=== PATIENT | male | born 1950 | race Caucasian/White ===

== ENCOUNTER 2022-02-01 19:04 | Emergency (ER) | payer MEDICARE, OTHER ==
[2022-02-01] MEDS ORDERED: LIDOCAINE 1%-EPI 1:100000 20 ML MDV SUBQ STA (19:29)
[2022-02-01] MEDS ORDERED: BUPIVACAINE 0.5% PF 10 ML VIAL SUBQ STA (19:30)
--- NOTE | 2022-02-01 19:36 | ED Physician Documentation ---
PD HPI UPPER EXT INJURY - Stated complaint Stated Complaint: RIGHT WRIST PX - Chief complaint Chief Complaint: Ext Problem - History obtained from History obtained from: Patient - Additonal information Additional information: 71-year-old gentleman with history of prostate cancer and hypertension presents with right hand pain starting early this morning around 3 AM. The pain is severe and unrelenting. There is no associated injury. He denies fevers or chills. Never had anything like this before. Review of Systems Ten Systems: 10 systems reviewed and negative Constitutional: denies: Fever, Chills Eyes: denies: Loss of vision, Decreased vision Ears: denies: Loss of hearing, Ear pain Nose: denies: Rhinorrhea / runny nose, Congestion Throat: reports: Reviewed and negative Cardiac: reports: Reviewed and negative Respiratory: reports: Reviewed and negative PD PAST MEDICAL HISTORY - Past Medical History Past Medical History: Yes Cardiovascular: Hypertension : Benign prostate hypertrophy, Other Musculoskeletal: Other Other Past Medical History: prostate Catorn rotator cuff - Past Surgical History Past Surgical History: Yes Ortho: Rotator cuff repair - Present Medications Home Medications: Ambulatory Orders Medication Instructions Recorded Confirmed Finasteride [Propecia] 1 mg PO DAILY 02/01/22 02/01/22 Lisinopril [Zestril] 5 mg PO BID 02/01/22 02/01/22 Tamsulosin [Flomax] 0.4 mg PO DAILY 02/01/22 02/01/22 - Allergies Allergies/Adverse Reactions: Allergies Allergy/AdvReac Type Severity Reaction Status Date / Time No Known Drug Allergies Allergy Verified 02/01/22 19:20 - Social History Does the pt smoke?: No Smoking Status: Never smoker Does the pt drink ETOH?: Yes Does the pt have substance abuse?: No - Immunizations Immunizations are current?: Yes PD ED PE NORMAL - Vitals Vital signs reviewed: Yes - General General: Alert and oriented X 3, Other (Appears uncomfortable, pacing because of the pain.) - HEENT HEENT: PERRL, EOMI - Neck Neck: Supple, no meningeal sign, No bony TTP - Cardiac Cardiac: RRR, No murmur - Respiratory Respiratory: No respiratory distress, Clear bilaterally - Abdomen Abdomen: Normal bowel sounds, Soft, Non tender - Back Back: No CVA TTP, No spinal TTP - Derm Derm: Normal color, Warm and dry - Extremities Extremities: Other (He has an area of warmth and redness on the dorsum of the right hand, radial side proximally. It is quite tender. No fluctuance or palpable abscess.) - Neuro Neuro: Alert and oriented X 3, Normal speech - Psych Psych: Normal mood, Normal affect Results - Vitals Vitals: Vital Signs - 24 hr 02/01/22 02/01/22 02/01/22 19:15 21:00 21:01 Temperature 36.7 C Heart Rate 100 85 Respiratory 16 15 Rate Blood Pressure 157/95 H 121/70 O2 Saturation 96 87 L 98 02/01/22 02/01/22 21:27 23:09 Temperature 36.8 C Heart Rate 89 104 H Respiratory 16 16 Rate Blood Pressure 130/73 138/90 H O2 Saturation 99 98 Oxygen O2 Source Nasal cannula - Labs Labs: Microbiology 02/01/22 19:55 Wound Culture - Preliminary Wrist - Right Laboratory Tests 02/01/22 02/01/22 02/01/22 19:39 19:39 19:39 WBC 12.1 H RBC 4.63 L Hgb 14.6 Hct 43.0 MCV 92.9 MCH 31.5 H MCHC 34.0 RDW 13.9 Plt Count 290 MPV 9.5 Neut # (Auto) 9.1 H Lymph # (Auto) 1.6 [place] # (Auto) 1.0 Eos # (Auto) 0.2 Baso # (Auto) 0.0 Absolute Nucleated RBC 0.00 Nucleated RBC % 0.0 Sodium 135 Potassium 3.9 Chloride 98 L Carbon Dioxide 25 Anion Gap 12.0 BUN 22 H Creatinine 1.1 Estimated GFR (MDRD) 66 L Glucose 128 H Lactic Acid 1.6 Uric Acid 4.9 Calcium 9.3 C-Reactive Protein 1.4 H Fluid Source Fluid Color Fluid Clarity Fluid WBC Fluid RBC Fluid Neutrophils % Fluid Lymphocytes % Fluid Monocytes % Fld Mesothelial Cell % Fluid Crystals SARS-CoV-2 (PCR) 02/01/22 02/01/22 02/01/22 19:55 19:55 20:05 WBC RBC Hgb Hct MCV MCH MCHC RDW Plt Count MPV Neut # (Auto) Lymph # (Auto) [place] # (Auto) Eos # (Auto) Baso # (Auto) Absolute Nucleated RBC Nucleated RBC % Sodium Potassium Chloride Carbon Dioxide Anion Gap BUN Creatinine Estimated GFR (MDRD) Glucose Lactic Acid Uric Acid Calcium C-Reactive Protein Fluid Source JOINT Fluid Color STRAW Fluid Clarity CLOUDY Fluid WBC TNP Fluid RBC TNP Fluid Neutrophils % 85.0 Fluid Lymphocytes % 3.0 Fluid Monocytes % 12.0 Fld Mesothelial Cell % 0 Fluid Crystals NONE SEEN SARS-CoV-2 (PCR) NOT DETECTED Procedures - Regional nerve block Nerve block site: Radial Right / left: Right Nerve block anesthesia: Lidocaine 1%, Marcaine 0.5% Nerve block aftercare: Excellent anesthesia - Arthrocentesis Joint: Wrist Preparation: Consent obtained, Sterile prep and drape Anesthesia: Lidocaine 1% Fluid: Sent for cell count, Sent for crystals, Fluid obtained - cc (1.2ml), Sent for gram stain, Purulent Aftercare: Dressing applied, No complications PD MEDICAL DECISION MAKING - ED course ED course: 71-year-old gentleman presents with right wrist pain. No clear etiology and pain is clearly out of proportion to exam. He was attended to immediately and a radial nerve block was done with a one-to-one mixture of lidocaine with epinephrine and Marcaine with decent pain control but then he was feeling more pain over on the ulnar side of the wrist. An x-ray was done as on the differential was necrotizing soft tissue infection, this was negative except for CMC and carpal arthritis. Then an arthrocentesis was done of the right wrist which was clearly purulent. Only a little more than 1 cc was obtained and was sent for Gram stain, culture, and cell count. Crystal exam if quantity is sufficient. We do not have orthopedics fashion show director and we started the process of looking for a facility capable of taking him in transfer at about 8 PM. The volume of arthrocentesis was not sufficient for a cell count, crystals were negative and she is going to do a differential. When she looked at the Gram stain there were TNTC white cells. Gram stain positive for gram-positive bacilli, and although she was not able to do a formal cell count the differential was predominantly neutrophils. He was administered Unasyn and vancomycin. Unasyn because I was concerned that given the above Gram stain this could be Listeria and vancomycin for other common gram-positive etiologies. I did update the by phone, she is available at [phone]. No ortho fashion show director here and [employer] called many facilities to find transfer, but closest open bed at [facility]. Care to Dr Rae at shift change pending doc to doc. Departure - Departure Disposition: 02 Transfer Acute Care Hosp Clinical Impression: Septic arthritis of wrist, right Qualifiers: Septic arthritis organism: due to unspecified organism Qualified Code(s): M00.9 - Pyogenic arthritis, unspecified Condition: Serious Discharge Date/Time: 02/01/22 23:24
[2022-02-01 19:45] LABS: BASOPHILS % (AUTO) 0.3 %; EOSINOPHILS # (AUTO) 0.2 10^3/uL (0.0-0.7); EOSINOPHILS % (AUTO) 1.7 %; HGB - HEMOGLOBIN 14.6 g/dL (14.0-18.0); LYMPHOCYTES # (AUTO) 1.6 10^3/uL (1.5-3.5); LYMPHOCYTES % (AUTO) 13.5 %; MEAN CORPUSCULAR HEMOGLOBIN 31.5 pg (27.0-31.0); MEAN CORPUSCULAR VOLUME 92.9 fL (80.0-94.0); MEAN PLATELET VOLUME 9.5 fL (7.4-11.4); MONOCYTES % (AUTO) 8.5 %; NEUTROPHILS # (AUTO) 9.1 10^3/uL (1.5-6.6); NEUTROPHILS % (AUTO) 75.5 %; PLT - PLATELET COUNT 290 10^3/uL (130-450); RED BLOOD COUNT 4.63 10^6/uL (4.70-6.10); RED CELL DISTRIBUTION WIDTH 13.9 % (12.0-15.0); WHITE BLOOD COUNT 12.1 x10^3/uL (4.8-10.8)
--- NOTE | 2022-02-01 19:54 | XRAY Report ---
PROCEDURE: Hand 3 View RT INDICATIONS: hand pain TECHNIQUE: 3 views of the hand(s) acquired. COMPARISON: None FINDINGS: Bones: No fractures or dislocations. No suspicious bony lesions. Mild to moderate osteophytic lucio ges at the first CMC and triscaphe joint. No periarticular erosion or tophus. Soft tissues: No suspicious soft tissue calcifications. IMPRESSION: No acute finding. No obvious plain radiographic findings of gout or inflammatory arthritis. 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 Reviewed by: Anish Muse MD on 02/01/2022 7:52 PM PDT Approved by: Anish Muse MD on 02/01/2022 7:52 PM PDT Station ID: [id number]
[2022-02-01 20:03] LABS: CALCIUM 9.3 mg/dL (8.5-10.3); CREATININE 1.1 mg/dL (0.6-1.2); CRP - C-REACTIVE PROTEIN 1.4 mg/dL (0-1.0); POTASSIUM 3.9 mmol/L (3.5-5.0); URIC ACID 4.9 mg/dL (2.6-7.2)
[2022-02-01 20:36] LABS: BF CLARITY CLOUDY; BF COLOR STRAW; BF SOURCE JOINT
[2022-02-01] MEDS ORDERED: HYDROmorphone 1 MG/ML CARPUJECT IVP STA ×3 (20:36→23:02)
[2022-02-01 20:38] LABS: MESOTHELIAL %, BF 0 %
[2022-02-01] MEDS ORDERED: AMPICILLIN/SULBACTAM 3 GM in SODIUM CHLORIDE 0.9% MINIBAG 100 ML IV STA (20:41)
[2022-02-01] MEDS ORDERED: VANCOMYCIN INJ 1.25 GM in SODIUM CHLORIDE 0.9% 500 ML IV STA (20:41)
[2022-02-01] MEDS ORDERED: VANCOMYCIN 1 GM VIAL ONE (21:19)
--- NOTE | 2022-02-01 22:48 | ED Physician Documentation ---
ED Addendum - Addendum Addendum: 02/01/22 22:47 Patient received a signout from outgoing physician, please see their do cumentation for further detail. Report given to orthopedic surgery, Dr. Del Rio associated with [facility] as well as with hospitalistDr. Esqueda.Patient graciously accepted in transfer. EMTALA and other transfer paperwork completed in the emergency department. Patient transferred from our facility for higher level of care at [facility].
[2022-02-01 23:10] VITALS: BP 138/90
== END 2022-02-01 23:24 | disposition short-term general hospital (02) ==
LOC: ED 19:04
DX: M00.89 Polyarthritis due to other bacteria (principal); B96.89 Other specified bacterial agents as the cause of diseases classified elsewhere; I10 Essential (primary) hypertension; M25.531 Pain in right wrist; Z20.822 Contact with and (suspected) exposure to COVID-19
CPT/HCPCS: 20600; 36415; 64450; 73130; 80048; 83605; 84550; 85025; 86140; 87040; 87070; 87205; 87635; 89051; 89060; 96365; 96375; 96376; 99283; 99285; J1170; J3370